=== PATIENT | female | born 1980 | race African-American/Black ===

== ENCOUNTER 2018-10-13 17:17 | Emergency (ER) | payer OTHER, SELFPAY ==
--- NOTE | 2018-10-13 18:15 | RAD ---
EXAM: CHEST ONE VIEW HISTORY: Cough chills and sore throat. Chest congestion. COMPARISON: 09/16/2012 FINDINGS: The cardiac silhouette and pulmonary vasculature is within normal limits. The lungs are clear. The os seous structures are intact. Metallic densities overlie the lower neck. This could be related to overlying artifact, but clinical correlation is recommended. IMPRESSION: 1. Metallic densities overlying the lower neck. Findings may be attributable to overlying artifact or surgical clips, but metallic foreign bodies cannot be excluded. Clinical correlation is recommended. 2. No acute cardiopulmonary process.
== END 2018-10-13 18:45 | disposition home or self-care (01) ==
LOC: ERS 17:17
DX: J20.9 Acute bronchitis, unspecified (principal); F17.210 Nicotine dependence, cigarettes, uncomplicated
CPT/HCPCS: 71045

== ENCOUNTER 2019-03-22 12:50 | Emergency (ER) | payer SELFPAY ==
[2019-03-22 13:38] LABS: #Basophils 0.1 thou/uL (0.0-0.2); #Eosinphils 0.2 thou/uL (0.0-0.7); #Lymphocytes 1.8 thou/uL (1.20-3.40); #Monocytes 0.6 thou/uL (0.11-0.59); #Neutrophils 2.6 thou/uL (1.40-6.50); %Basophils 1.6 % (0.0-1.0); %Eosinophils 3.4 % (0.0-10.0); %Lymphocytes 34.4 % (21.0-51.0); %Monocytes 11.1 % (0.0-10.0); %Neutrophils 49.5 % (42.0-75.0); Hemoglobin 13.5 g/dL (12.0-16.0); Mean Corpuscular HGB CONC 34.5 g/dL (32.0-36.0); Mean Corpuscular Hemoglobin 31.3 pg (27.0-31.0); Mean Corpuscular Volume 90.6 fL (78.0-98.0); Mean Platelet Volume 7.6 fL (7.4-10.4); Platelet Count 242 thou/uL (130-400); RBC Distribution Width 11.7 % (11.5-14.5); White Blood Cell (WBC) Count 5.2 thou/uL (4.8-10.8)
[2019-03-22] MEDS ORDERED: Metoclopramide HCl 10 MG/2 ML VIAL ONE (14:21)
[2019-03-22] MEDS ORDERED: diphenhydrAMINE 50 MG/ML VIAL ONE (14:21)
[2019-03-22] MEDS ORDERED: Acetaminophen 500 MG TAB ONE (14:21)
[2019-03-22] MEDS ORDERED: Ketorolac Tromethamine 30 MG/ML VIAL ONE (14:21)
[2019-03-22] MEDS ORDERED: Ketorolac Tromethamine 30 MG/ML VIAL IVP ONE (14:30)
[2019-03-22] MEDS ORDERED: Sodium Chloride 0.9% 1,000 ML IV SCH (14:30)
[2019-03-22] MEDS ORDERED: Acetaminophen 500 MG TAB PO ONE (14:30)
[2019-03-22] MEDS ORDERED: Metoclopramide HCl 10 MG/2 ML VIAL IVP ONE (14:30)
[2019-03-22] MEDS ORDERED: diphenhydrAMINE 50 MG/ML VIAL IVP ONE (14:30)
[2019-03-22 15:28] LABS: Chloride 108 mmol/L (98-107); Potassium 4.1 mmol/L (3.5-5.1); Sodium 137 mmol/L (136-145)
[2019-03-22 15:29] LABS: Calcium 8.6 mg/dL (7.8-10.44); Glucose 106 mg/dL (70-105)
[2019-03-22 15:30] LABS: Globulin 2.8 g/dL (2.4-3.5); Protein, Total 6.8 g/dL (6.0-8.3)
[2019-03-22 15:31] LABS: Anion Gap 12 mmol/L (10-20); Bilirubin, Total 0.4 mg/dL (0.2-1.2); Carbon Dioxide 21 mmol/L (22-29)
[2019-03-22 15:32] LABS: Alkaline Phosphatase 71 U/L (40-110)
[2019-03-22 15:33] LABS: Calc. Creatinine Clearance 0 mL/min (70-130); Estimated GFR-MDRD Greater than 90
[2019-03-22 15:34] LABS: BUN (Urea Nitrogen) 8 mg/dL (7.0-18.7)
[2019-03-22 15:35] LABS: ALT (SGPT) 11 U/L (8-55); AST (SGOT) 19 U/L (5-34)
--- NOTE | 2019-03-23 07:34 | RAD ---
EXAM: Single view of the chest HISTORY: Cough COMPARISON: 10/13/2018 FINDINGS: Single view of the chest shows a normal sized cardiomediastinal silhouette. There is no aracelis dence of consolidation, mass, or pleural effusion. The bones are unremarkable. IMPRESSION: No evidence of acute cardiopulmonary disease
== END 2019-03-22 16:18 | disposition home or self-care (01) ==
LOC: ERS 12:50
DX: G43.909 Migraine, unspecified, not intractable, without status migrainosus (principal); F17.210 Nicotine dependence, cigarettes, uncomplicated
CPT/HCPCS: 36415; 71045; 80053; 85025; J1200; J1885; J2765

== ENCOUNTER 2019-10-31 09:26 | Emergency (ER) | payer OTHER, SELFPAY ==
[2019-10-31] MEDS ORDERED: Ondansetron ODT 4 MG TAB ONE (09:48)
[2019-11-01 13:49] LABS: SARS-CoV-2 MS2 Positive; SARS-CoV-2 N Gene Negative; SARS-CoV-2 S Gene Negative; SARS-CoV-2 orf1ab Negative
== END 2019-10-31 10:20 | disposition home or self-care (01) ==
LOC: ERS 09:26
DX: R11.2 Nausea with vomiting, unspecified (principal); R05 Cough; R19.7 Diarrhea, unspecified; G43.909 Migraine, unspecified, not intractable, without status migrainosus; F17.210 Nicotine dependence, cigarettes, uncomplicated; Z20.828 Contact with and (suspected) exposure to other viral communicable diseases
CPT/HCPCS: 87635; 99284; Q0162; U0003

== ENCOUNTER 2022-10-27 22:39 | Emergency (ER) | payer OTHER | END 2022-10-28 00:14 | disposition left against medical advice (07) | LOC: ERS 22:39 | DX: Z53.21 Procedure and treatment not carried out due to patient leaving prior to being seen by health care provider (principal) ==